=== PATIENT | male | born 1980 | race African-American/Black ===

== ENCOUNTER 2021-11-21 16:10 | Emergency (ER) | payer SELFPAY ==
[~2021-11-21] VITALS: Ht 180.3 cm; Wt 110.0 kg
[2021-11-21] MEDS ORDERED: ACETAMINOPHEN 325MG TABLET PO STA (16:57)
[2021-11-21] MEDS ORDERED: NITROGLYCERIN 0.4MG TABLET SL SL PRN (17:45)
[2021-11-21] MEDS ORDERED: ASPIRIN 81MG TABLET PO ONE (17:45)
[2021-11-21 18:00] VITALS: BP 160/94
== END 2021-11-21 18:50 | disposition left against medical advice (07) ==
LOC: ER 16:10
DX: R07.89 Other chest pain (principal); R50.9 Fever, unspecified
CPT/HCPCS: 93005; 99283